=== PATIENT | male | born 1975 | race Caucasian/White ===

== ENCOUNTER 2017-04-22 11:04 | Emergency (ER) | payer BC, OTHER ==
[2017-04-22 11:18] VITALS: BP 123/68
--- NOTE | 2017-04-22 12:18 | UC ---
Throat Pain/Nasal Shashank HPI - HPI Summary HPI Summary: Pt presents with sore throat for the last 3 days. He tells me that he has a history of strep that has been negative multiple times on rapid testing. He denies fever, chills, cough, SOB, chest pain, sinus symptoms, abdominal pain, N/ V/D/C - History of Current Complaint Chief Complaint: UCRespiratory Stated Complaint: SORE THROAT Time Seen by Provider: 04/22/17 11:59 Hx Obtained From: Patient Onset/Duration: Gradual Onset Severity: Moderate Pain Intensity: 7 Pain Scale Used: 0-10 Numeric - Allergies/Home Medications Allergies/Adverse Reactions: Allergies Allergy/AdvReac Type Severity Reaction Status Date / Time No Known Allergies Allergy Verified 04/22/17 11:15 Home Medications: Home Medications Amphetamine MIXED SALT TAB* [Adderall TAB*] 04/22/17 [History] Atorvastatin* [Lipitor 10 MG*] 04/22/17 [History] Lisinopril TAB* [Prinivil TAB 5 MG*] 20 mg 04/22/17 [History] PMH/Surg Hx/FS Hx/Imm Hx Previously Healthy: Yes Endocrine History: Dyslipidemia Cardiovascular History: Hypertension - Surgical History Surgical History: None - Family History Known Family History: Positive: Unknown - Social History Occupation: Employed Full-time Lives: With Family Alcohol Use: None Substance Use Type: None Smoking Status (MU): Never Smoked Tobacco Review of Systems Constitutional: Negative Skin: Negative Eyes: Negative ENT: Sore Throat Respiratory: Negative Cardiovascular: Negative Gastrointestinal: Negative All Other Systems Reviewed And Are Negative: Yes Physical Exam Triage Information Reviewed: Yes Appearance: Well-Appearing, Well-Nourished Vital Signs: Initial Vital Signs Temp 98.2 F 04/22/17 11:16 Pulse 70 04/22/17 11:16 Resp 16 04/22/17 11:16 BP 123/68 04/22/17 11:16 Pulse Ox 100 04/22/17 11:16 Vital Signs Reviewed: Yes Eyes: Positive: Conjunctiva Clear. Negative: Conjunctiva Inflamed, Discharge ENT: Positive: Hearing grossly normal, Pharynx normal, Pharyngeal erythema, TMs normal, Tonsillar swelling - 2+, Tonsillar exudate, Uvula midline. Negative: Nasal congestion, Nasal drainage, TM bulging, TM dull, TM red, Muffled voice, Hoarse voice, Sinus tenderness Neck: Positive: Supple, Nontender, No Lymphadenopathy Respiratory: Positive: Chest non-tender, Lungs clear, Normal breath sounds, No respiratory distress, No accessory muscle use Cardiovascular: Positive: RRR, No Murmur, Pulses Normal Neurological: Positive: Alert Psychological: Positive: Age Appropriate Behavior Skin: Negative: rashes Throat Pain/Nasal Course/Dx - Course Course Of Treatment: POC strep negative. I discussed with the pt that this is likely a viral pharyngitis, but he was persistent that he has a hx of undiagnosed strep on rapid testing and that he is traveling and would like treatment just in case. - Differential Dx/Diagnosis Differential Diagnosis/HQI/PQRI: Laryngitis, Mononucleosis, Otitis Media, Pharyngitis, Tonsillitis, URI Provider Diagnoses: Pharyngitis Discharge - Discharge Plan Condition: Stable Disposition: HOME Prescriptions: Amoxicillin PO (*) [Amoxicillin 500 MG CAP*] 500 mg PO Q12H #14 cap Patient Education Materials: Pharyngitis (ED) Referrals: Brandon Whitmore MD [Primary Care Provider] - Additional Instructions: If you develop a fever, SOB, chest pain, new or worsening symptoms - please call your PCP or go to the ED.
== END 2017-04-22 13:08 | disposition home or self-care (01) ==
LOC: UCEAST 11:04
DX: J02.9 Acute pharyngitis, unspecified (principal); I10 Essential (primary) hypertension; E78.5 Hyperlipidemia, unspecified
CPT/HCPCS: 87651; 99202; G0463

== ENCOUNTER 2018-10-19 16:28 | Emergency (ER) | payer SELFPAY ==
[2018-10-19 16:38] VITALS: BP 139/85
--- NOTE | 2018-10-19 17:01 | UC ---
Ear Complaint HPI - HPI Summary HPI Summary: 7 - 10 DAYS OF BILATERAL EAR PRESSURE AND MILD DISCOMFORT. NO DRAINAGE OR HEARING DEFICIT. ALSO COMPLAINS OF A SENSATION OF A LUMP IN HIS THROAT FOR THE SAME AMOUNT OF TIME. DENIES SORE THROAT. NO COUGH OR CONGESTION. NO PROBLEMS SWALLOWING FOOD OR FLUIDS. NO NAUSEA/VOMITING. NO FEVER. HAS HAD REFLUX IN THE PAST BUT STATES THIS FEELS DIFFERENT. - History of Current Complaint Chief Complaint: UCGeneralIllness Stated Complaint: EAR ACHE AND SORE THROAT Time Seen by Provider: 10/19/18 16:41 Hx Obtained From: Patient Onset/Duration: Gradual Onset, Lasting Days, Lasting Weeks Severity Initially: Moderate Severity Currently: Moderate Pain Intensity: 5 Pain Scale Used: 0-10 Numeric Aggravating Factors: Nothing Alleviating Factors: Nothing Associated Signs/Symptoms: Negative: Discharge, Hearing Loss, URI Symptoms - Allergies/Home Medications Allergies/Adverse Reactions: Allergies Allergy/AdvReac Type Severity Reaction Status Date / Time No Known Allergies Allergy Verified 10/19/18 16:38 Home Medications: Home Medications Acetaminophen [Tylenol] 1,000 mg PO TID PRN 10/19/18 [History Confirmed 10/19/18 ] Aspirin 81 mg CHEW TAB* 1 tab PO DAILY 10/19/18 [History Confirmed 10/19/18] Cholecalciferol TAB* [Vitamin D TAB*] 1,000 unit PO DAILY 10/19/18 [History Confirmed 10/19/18] Ibuprofen TAB* [Advil TAB*] 400 mg PO Q6H PRN 10/19/18 [History Confirmed ] PMH/Surg Hx/FS Hx/Imm Hx Cardiovascular History: Hypertension - Surgical History Surgical History: Yes Surgery Procedure, Year, and Place: laser tonsil surgery. varicocele - Family History Known Family History: Positive: Non-Contributory - Social History Alcohol Use: Weekly Substance Use Type: Marijuana Substance Use Comment - Amount & Last Used: occasional Smoking Status (MU): Never Smoked Tobacco Review of Systems All Other Systems Reviewed And Are Negative: Yes Constitutional: Positive: Negative ENT: Positive: Ear Ache Respiratory: Positive: Negative Cardiovascular: Positive: Negative Gastrointestinal: Positive: Negative Neurological: Positive: Negative Physical Exam Triage Information Reviewed: Yes Appearance: Well-Appearing, No Pain Distress, Well-Nourished Vital Signs: Initial Vital Signs Temp 98.8 F 10/19/18 16:34 Pulse 72 06/22/19 16:34 Resp 16 10/19/18 16:34 BP 139/85 10/19/18 16:34 Pulse Ox 98 10/19/18 16:34 Vital Signs Reviewed: Yes Eyes: Positive: Conjunctiva Clear ENT: Positive: Hearing grossly normal, Pharynx normal, TMs normal - CERUMEN PARTIALLY OBSTRUCTING TMs Neck: Positive: Supple, Nontender, No Lymphadenopathy Respiratory Exam: Normal Cardiovascular Exam: Normal Abdomen Description: Positive: Soft Musculoskeletal: Positive: No Edema Neurological: Positive: Alert Psychological: Positive: Age Appropriate Behavior Skin: Negative: Rashes Ear Complaint Course/Dx - Course Course Of Treatment: BILATERAL TMS SUCCESSFULLY IRRIGATED BY RN. TMS VISUALIZED AND NORMAL. NO EVIDENCE OF INFECTION. NO EVIDENCE OF STREP THROAT OR TONSILLITIS. ADVISED TO STAY WELL-HYDRATED. DISCUSSED A TRIAL OF OTC PPI HIS SYMPTOMS MAY BE RELATED TO REFLUX. ADVISED FOLLOW-UP WITH AN ENT OR GI SPECIALIST WHEN HE RETURNS HOME TO [facility]. - Differential Dx/Diagnosis Provider Diagnosis: Impacted cerumen of both ears, Globus sensation Discharge - Sign-Out/Discharge Documenting (check all that apply): Patient Departure All imaging exams completed and their final reports reviewed: No Studies - Discharge Plan Condition: Stable Disposition: HOME Patient Education Materials: Cerumen Impaction (ED) Referrals: No Primary Care Phys,NOPCP [Primary Care Provider] - Additional Instructions: CERUMEN SUCCESSFULLY IRRIGATED FROM BOTH YOUR EARS. NO SIGN OF EAR INFECTION. FOLLOW-UP WITH AN ENT WHEN YOU GET BACK HOME TO [place], [place] TO FURTHER EVALUATE THE SENSATION IN YOUR THROAT. - Billing Disposition and Condition Condition: STABLE Disposition: Home
== END 2018-10-19 17:06 | disposition home or self-care (01) ==
LOC: UCEAST 16:28
DX: H61.23 Impacted cerumen, bilateral (principal); R09.89 Other specified symptoms and signs involving the circulatory and respiratory systems; I10 Essential (primary) hypertension
CPT/HCPCS: 99213; G0463